=== PATIENT | female | born 1970 | race Caucasian/White ===

== ENCOUNTER 2016-12-09 11:45 | Emergency (ER) | payer BC | END 2016-12-09 12:20 | disposition home or self-care (01) | LOC: CFTX 11:45 | DX: S01.81XA Laceration without foreign body of other part of head, initial encounter (principal); W22.8XXA Striking against or struck by other objects, initial encounter; Y92.009 Unspecified place in unspecified non-institutional (private) residence as the place of occurrence of the external cause | CPT/HCPCS: 12011; 99283 ==